=== PATIENT | male | born 1955 | race Hispanic/Latino ===

== ENCOUNTER → 2023-12-13 06:34 | Outpatient (REF) | payer BC, SELFPAY | LOC: MRI 3T 06:34 | PROVIDERS: ATTENDING PHYSICIAN Anesthesiology; FAMILY PHYSICIAN Family Medicine | DX: M47.817 Spondylosis without myelopathy or radiculopathy, lumbosacral region (principal) | CPT/HCPCS: 72148 ==

== ENCOUNTER 2024-06-28 19:14 | Emergency (ER) | payer BC, SELFPAY ==
[2024-06-28 19:19] VITALS: BP 177/72
--- NOTE | 2024-06-28 20:16 | ED.GENMED ---
History of Present Illness
General
Chief Complaint: Swelling
Time Seen by Provider: 06/28/24 19:58
History of Present Illness
History of Present Illness:
69-year-old male with history of [id number]-[id number] diabetes, coronary artery disease status post stent to the LAD in 2008, hypertension, and hyperlipidemia presents to the emergency department for evaluation of left lower leg and ankle swelling
first noticed today. He reports he has had mild discomfort to the left fifth toe for the past 3 to 4 days predominantly when walking his dog with shoes on. No fevers or chills. Does not take any blood thinners. Denies any recent travel or
prolonged immobilization
Past History
Past History
ED Past Medical History: CAD, HTN, Hypercholesterolemia and [place]
ED Past Surgical History: Cardiac (stent)
Social History
Tobacco: Former smoker
Alcohol: None
Drug: None
Review of Systems
Review of Systems
Allergies reviewed?: Yes
All Other Systems: ROS reviewed and negative except as documented in HPI and ROS
Phy Exam
Physical Exam
Physical Exam:
GEN: Well appearing, NAD, WDWN
HEENT: Oral mucosa moist, no scleral icterus
Cardiac: Regular rate And rhythm, no murmurs
Lung: No respiratory distress, no tachypnea
MSK: No gross deformity or injuries
Skin: Good color, no pallor or jaundice. Small superficial ulceration to the lateral left fifth toe with moderate erythema and swelling of fifth digit, erythema extends to the midfoot with lymphangitic streaking to the medial calf, mild left calf
edema and left ankle edema noted
Neuro: AO x3, moves all extremities freely
Psych: Calm, cooperative
Scores
Heart Failure Risk
Heart Failure Risk Score: Not Applicable
Course
Orders/Labs/Results
Orders:
Orders
06/28/24 20:15
CeFAZolin 2 GRAM [Ancef] 2 grams in 10 ml IV NOW
CR Toe(s) Min 2 Vw Left Urgent
Comment:
Reason For Exam: wound/cellulitis
Indicate Which Toe:: Fifth
06/28/24 20:30
CRP [C-Reactive Protein] Urgent
Complete Blood Count/With Diff Urgent
Comprehensive Metabolic Panel Urgent
06/28/24 21:04
Cephalexin Monohydrate [Keflex] 500 mg PO NOW STA
Abnormal Lab Results
06/28/24
20:30
Glucose 100 H mg/dl
(70-99)
Total Protein 6.1 L g/dl
(6.3-8.2)
06/28/24 20:30
06/28/24 20:30
Vital Signs
Initial and Last Documented VS:
Initial Vital Signs
Temp Pulse Resp BP Pulse Ox
98.4 F 53 16 177/72 98
06/28/24 19:19 06/28/24 19:19 06/28/24 19:19 06/28/24 19:19 06/28/24 19:19
Last Documented Vital Signs
Temp Pulse Resp BP Pulse Ox
98.4 F 57 20 177/72 98
06/28/24 19:19 06/28/24 20:00 06/28/24 20:00 06/28/24 19:19 06/28/24 20:00
MDM/Problems Addressed
MDM/Problems Addressed:
Patient's labs are reassuring, negative CRP coupled with unremarkable x-ray reassuring against osteomyelitis. He does have lymphangitis extending to the thigh however clinically he is well and I do not see that there is any indication for Hospital
admission for further IV antibiotics. Initial dose of IV cefazolin given in the emergency department and will discharge home on a course of cephalexin. ED return parameters and wound care discussed. Encouraged the patient to follow-up with either
his primary care physician or podiatry within 1 week
*Critical Care Note
Total Time (30-74mins, 75-104mins- exclusive of procedures): Not Applicable
ED Attending Note
-
Portions of this chart may have been created with voice recognition software.� Occasional wrong word or��sound alike� substitutions may have occurred due to the inherent limitations of voice recognition software.
Discharge Plan
Departure
Patient Disposition: Home (Routine Discharge)
Date of Disposition: 06/28/24
Time of Disposition: 21:03
Patient with high blood pressure during this ER visit?: No
Discharge Problem:
Diabetic ulcer of left fifth toe, Cellulitis of foot, left
Instructions: Cellulitis (Skin Infection), Adult ED
Prescriptions:
New
cephalexin 500 mg capsule
500 mg PO QID 7 Days Qty: 28 0RF
No Action
aspirin [Andria Aspirin] 325 MG tablet
325 mg PO DAILY
Lisinopril
10 mg PO DAILY
Patient Comments:
pt not sure of mgms
atorvastatin 40 MG tablet
40 mg PO DAILY
glimepiride 4 MG tablet
8 mg PO BID
hydrochlorothiazide 25 MG tablet
25 mg PO DAILY
empagliflozin [Jardiance] 25 MG tablet
25 mg PO DAILY
dulaglutide [Trulicity] 0.75 MG/0.5 ML pen injector
0.75 mg SQ WEEKLY
sitagliptin phosphate [Januvia] 100 MG tablet
100 mg PO DAILY
sennosides [senna] 1 TABLET tablet
2 tab PO BID 0RF
aspirin,buffd-calcium carb-mag [Tri-Buffered Aspirin] 325 MG tablet
325 mg PO DAILY 0RF
ferrous sulfate [FeroSul] 325 MG tablet
325 mg PO DAILY 0RF
docusate sodium 100 MG capsule
100 mg PO BID 0RF
oxycodone 5 MG tablet
5 mg PO Q4HPRN PRN (Reason: mild pain) 0RF
oxycodone 10 MG tablet
10 mg PO Q4HPRN PRN (Reason: moderate pain) 0RF
polyethylene glycol 3350 17 GRAMS powder in packet
17 grams PO DAILY Qty: 30 0RF
gabapentin 300 MG capsule
300 mg PO BID Qty: 14 0RF
acyclovir 800 MG tablet
800 mg PO 5/D 10 Days Qty: 50 0RF
lidocaine 1 PATCH adhesive patch,medicated
1 patch topical DAILY Qty: 10 0RF
Rx Instructions:
ON FOR 12 HOURS, OFF FOR 12 HOURS
Referrals:
Grzegorz Kennedy MD [Family Provider] -
Activity Restrictions/Additional Instructions:
Change dressing every day and wash with soap and water
Be sure to dress the toe with a comfortable bandage to avoid further skin breakdown
If symptoms worsen or you develop a fever, return to the Emergency Department
Interventions
Interventions:
*Risk Screen - Suicide Last Done: 06/28/24 21:23
*General Assessment Last Done: 06/28/24 21:23
*Neglect/Abuse Screening Last Done: 06/28/24 21:23
ED- Fall Risk Assessment Last Done: 06/28/24 21:20
*ED COVID-19 Vaccine History Last Done: 06/28/24 21:23
*Nursing Disposition Last Done: 06/28/24 21:23
ED- Cardiac Assessment Last Done: 06/28/24 21:20
ED- Pulmonary Assessment Last Done: 06/28/24 21:20
ED-Skin Assessment Last Done: 06/28/24 21:20
Discharge Date and Time
Discharge Date/Time: 06/28/24 21:24
Print Language: OCCITAN
[2024-06-28 20:37] LABS: % Eosinophils 3.8 % (0-6); % Immature Granulocytes 0.3 % (0-0.5); % Lymphocytes 28.3 % (20.5-51.1); % Monocytes 9.2 % (1.7-9.3); % Neutrophils 57.4 % (42.2-75.2); Absolute Basophils 0.1 10^3/uL (0-0.2); Absolute Eosinophils 0.2 10^3/uL (0-0.7); Absolute Lymphocytes 1.6 10^3/uL (1.2-3.4); Absolute Monocytes 0.5 10^3/uL (0.1-0.6); Absolute Neutrophils 3.3 10^3/uL (1.4-6.5); Hematocrit 41.5 % (39.0-52.0); Hemoglobin 14.6 g/dL (13.0-18.0); Mean Corp Hgb Conc. 35.2 g/dL (33.0-37.0); Mean Corpuscular Hgb 30.8 pg (27.0-31.0); Mean Corpuscular Volume 87.6 fL (80.0-94.0); Mean Platelet Volume 9.9 fL (7.4-10.4); Nucleated Red Blood Cells % 0 % (-); Platelet Count 188 10^3/uL (130-400); Red Blood Cell Count 4.74 10^6/uL (4.70-6.10); White Blood Cell Count 5.7 10^3/uL (4.8-10.8)
[2024-06-28 20:52] LABS: ALT (SGPT) 36 U/L (0-50); AST (SGOT) 33 U/L (17-59); Albumin 3.9 g/dl (3.5-5.0); Alkaline Phosphatase 76 U/L (38-126); Blood Urea Nitrogen 19 mg/dl (9-20); Calcium 9.3 mg/dl (8.4-10.2); Carbon Dioxide 28 mmol/L (22-30); Chloride 105 mmol/L (98-107); Glucose 100 mg/dl (70-99); Potassium 3.8 mmol/L (3.5-5.1); Sodium 143 mmol/L (135-145); Total Bilirubin 0.7 mg/dl (0.2-1.3); Total Protein 6.1 g/dl (6.3-8.2); eGFR > 60.00
[2024-06-28 21:01] LABS: C-Reactive Protein < 5.00 mg/L (0.0-10.00)
[2024-06-28] MEDS: ANCEF 10 IV (21:04)
[2024-06-28] MEDS: KEFLEX 500 MG PO (21:15)
== END 2024-06-28 21:24 | disposition home or self-care (01) ==
LOC: EMR 19:14
PROVIDERS: Physician Assistant; EMERGENCY PHYSICIAN Emergency Medicine; FAMILY PHYSICIAN Family Medicine
DX: E11.621 Type 2 diabetes mellitus with foot ulcer (principal); L97.529 Non-pressure chronic ulcer of other part of left foot with unspecified severity; L03.116 Cellulitis of left lower limb; I25.10 Atherosclerotic heart disease of native coronary artery without angina pectoris; I10 Essential (primary) hypertension; E78.00 Pure hypercholesterolemia, unspecified; I25.2 Old myocardial infarction; Z87.891 Personal history of nicotine dependence; Z95.5 Presence of coronary angioplasty implant and graft
CPT/HCPCS: 99283; 96374; 73660; 80053; 85025; 86140

== ENCOUNTER → 2025-04-25 10:41 | Outpatient (REF) | payer BC, SELFPAY | LOC: PAVMRI 10:41 | PROVIDERS: ATTENDING PHYSICIAN Orthopaedic Surgery Sports Medicine; FAMILY PHYSICIAN Family Medicine | DX: S46.012A Strain of muscle(s) and tendon(s) of the rotator cuff of left shoulder, initial encounter (principal) | CPT/HCPCS: 73221 ==